=== PATIENT | male | born 1940 | race Caucasian/White ===

== ENCOUNTER 2016-05-23 16:53 | Inpatient (IN) | payer OTHER, MEDICARE ==
[~2016-05-23] VITALS: Ht 177.8 cm; Wt 102.3 kg
[~2016-05-23 16:53] MED LIST: ASPIR-LOW81 MG PO; ASPIRIN E.C.81 M1 PO; Aspirin E.C. PO; BUSPIRONE HCL15 MG PO; Buspar PO; CARDIZEM CD240 MG PO; CELEXA40 MG PO; CLONAZEPAM0.5 MG PO; COLACE100 MG PO; Cardizem CD,Cartia X PO; Colace PO; DAILY VALUE1 EACH PO; FUROSEMIDE20 MG PO; FUROSEMIDE40 MG PO; GABAPENTIN600 MG PO; GLIPIZIDE XL5 MG PO; GLIPIZIDE10 M1 PO; GLUCOPHAGE1000 MG PO; GLUCOPHAGE500 MG PO; Glucotrol PO; HYDROCHLOROTHIA25 MG PO; Invanz IV; K-DUR10 MEQ PO; KlonoPIN PO; LEVEMIR FL100 UNIT/1 SC; LEVEMIR FL100 UNITS/ PO; LEVEMIR FL100 UNITS/ SC; LEXAPRO10 MG PO; LIPITOR20 MG PO; LOTENSIN20 M1 GT; LOTENSIN20 M1 PO; LOTENSIN20 MG PO; Lotensin PO; METHADONE10 MG PO; METHADONE5 MG PO; METHadone HCl PO; MULTIVITAMINS1 EAC2 PO; PLAVIX75 MG PO; PROPRANOLOL HCL20 MG PO; Plavix PO; SANTYL30 GM TP; SIMVASTATIN80 MG PO; SPIRONOLACTONE25 MG PO; TYLENOL PM1 CAPLET PO; Theragran PO; Vancomycin IV; Zocor PO; celeXA PO
[2016-05-23 17:48] LABS: HEMATOCRIT 29.4 % (38.0-50.0); MCH 28.1 PG (29.0-34.0); MCHC 33.3 G/DL (30.0-36.0); MCV 84.2 FL (86-99); PLATELET COUNT 294 K/uL (156-360); RBC DIS.WIDTH-CV 13.4 % (11.8-14.6); RBC DIS.WIDTH-SD 39.6 % (39-53); RED BLOOD COUNT 3.49 M/uL (4.00-5.50); WHITE BLOOD COUNT 7.4 K/uL (4.1-10.2)
[2016-05-23 18:07] LABS: CHLORIDE 100 mEq/L (99-109); POTASSIUM 4.3 mEq/L (3.7-5.4)
[2016-05-23 18:08] LABS: SODIUM 142 mEq/L (136-147)
[2016-05-23 18:09] LABS: GLUCOSE 102 mg/dL (70-99)
[2016-05-23 18:11] LABS: ANION GAP 13 MEQ/L (2-14)
[2016-05-23 18:13] LABS: GFR ESTIMATE (CALCULATED) 40 mL/min/
[2016-05-23 18:14] LABS: UREA NITROGEN (BUN) 36 mg/dL (9-23)
[2016-05-23 18:30] LABS: ADD MIUA? YES; BILIRUBIN NEGATIVE; BLOOD SMALL; COLOR STRAW ((YELLOW)); GLUCOSE (STRIP) NEGATIVE; KETONES NEGATIVE; LEUKOCYTES NEGATIVE; NITRITE NEGATIVE; PROTEIN (STRIP) NEGATIVE; UROBILINOGEN 0.2 MG/DL (0.2-1.0)
[2016-05-23 18:35] LABS: BACTERIA NONE SEEN /HPF; EPITHELIAL CELLS NONE SEEN /HPF; MUCUS TRACE /LPF; RED BLOOD CELLS 0-5 /HPF (0-5); UCUL ADDED? NO; WHITE BLOOD CELLS 0-5 /HPF (0-5)
[2016-05-23 19:22] LABS: INFLUENZA A VIRAL ANTIGEN NEGATIVE; INFLUENZA B VIRAL ANTIGEN NEGATIVE
[2016-05-23] MEDS ORDERED: CARDIZEM CD120 M1 PO (20:00)
[2016-05-23] MEDS ORDERED: GABAPENTIN300 MG PO (20:02)
[2016-05-23] MEDS ORDERED: LEXAPRO5 MG PO (20:03)
[2016-05-23] MEDS ORDERED: VITAMIN D31000 UNI2 PO (20:07)
[2016-05-23] MEDS ORDERED: QUETIAPINE FUMA25 MG PO ×2 (20:08)
[2016-05-23] MEDS ORDERED: ZOLOFT100 MG PO ×2 (20:09→20:10)
[2016-05-23] MEDS ORDERED: CARBIDOPA/LEVO1 EACH PO (20:10)
[2016-05-23] MEDS ORDERED: TRAZODONE HCL50 MG PO (20:11)
[2016-05-23] MEDS ORDERED: IRON325 MG PO (20:11)
[2016-05-23 21:02] LABS: POINT-OF-CARE METER ID UU14100415
[2016-05-23 22:22] VITALS: BP 127/60
[2016-05-23 22:24] VITALS: BP 127/60
[2016-05-24 03:07] VITALS: BP 155/70
[2016-05-24 07:15] LABS: EOSINOPHIL (%) 0.2 % (0-5); HEMATOCRIT 27.1 % (38.0-50.0); MCH 27.3 PG (29.0-34.0); MCHC 32.5 G/DL (30.0-36.0); MCV 84.2 FL (86-99); MONOCYTE (%) 8.7 % (3-12); MONOCYTE COUNT 0.5 K/uL (0-0.8); NEUTROPHIL (%) 71.3 % (45-76); NEUTROPHIL COUNT 3.7 K/uL (1.8-6.4); RBC DIS.WIDTH-CV 13.9 % (11.8-14.6); RBC DIS.WIDTH-SD 42.4 % (39-53); RED BLOOD COUNT 3.22 M/uL (4.00-5.50); WHITE BLOOD COUNT 5.2 K/uL (4.1-10.2)
[2016-05-24 08:29] VITALS: BP 141/68
[2016-05-24 08:43] LABS: MEAN PLAT.VOLUME 8.9 uM^3 (9.0-12.4); PLATELET COUNT UNABLE TO REPORT K/uL (156-360); USER ID TLW
[2016-05-24 09:32] LABS: ANION GAP 13 MEQ/L (2-14); CHLORIDE 101 MEQ/L (99-109); GLUCOSE 79 mg/dL (70-99); SAMPLE HEMOLYSIS CHECK 0; SAMPLE ICTERIC CHECK 0; SAMPLE LIPEMIA CHECK 0; SODIUM 142 MEQ/L (136-147); UREA NITROGEN (BUN) 26 mg/dL (9-23)
[2016-05-24 09:35] LABS: GFR ESTIMATE (CALCULATED) > 59 mL/min/; POTASSIUM 3.4 MEQ/L (3.7-5.4)
[2016-05-24 11:07] VITALS: BP 146/86
[2016-05-24 15:27] LABS: ERTH.SED.RATE 50 MM/HR (0-20)
[2016-05-24 15:50] VITALS: BP 124/58
[2016-05-24 19:37] VITALS: BP 152/67
[2016-05-25 02:40] VITALS: BP 148/67
[2016-05-25 06:50] LABS: HEMATOCRIT 24.8 % (38.0-50.0); MCH 27.4 PG (29.0-34.0); MCHC 32.7 G/DL (30.0-36.0); MCV 83.8 FL (86-99); RBC DIS.WIDTH-CV 13.9 % (11.8-14.6); RBC DIS.WIDTH-SD 42.2 % (39-53); RED BLOOD COUNT 2.96 M/uL (4.00-5.50)
[2016-05-25 06:51] LABS: WHITE BLOOD COUNT 3.6 K/uL (4.1-10.2)
[2016-05-25 06:56] LABS: ALKALINE PHOSPHATASE 64 IU/L (3-129); ANION GAP 9 MEQ/L (2-14); CHLORIDE 101 MEQ/L (99-109); GFR ESTIMATE (CALCULATED) > 59 mL/min/; IRON 19 MCG/DL (35-150); POTASSIUM 3.1 MEQ/L (3.7-5.4); SAMPLE HEMOLYSIS CHECK 0; SAMPLE ICTERIC CHECK 0; SAMPLE LIPEMIA CHECK 0; SODIUM 138 MEQ/L (136-147); TOTAL BILIRUBIN 0.4 MG/DL (0.0-1.0); UREA NITROGEN (BUN) 18 mg/dL (9-23)
[2016-05-25 06:57] LABS: GLUCOSE 135 mg/dL (70-99)
[2016-05-25 07:33] LABS: PLATELET COUNT 197 K/uL (156-360)
[2016-05-25 08:18] VITALS: BP 121/58
[2016-05-25 12:00] VITALS: BP 110/62
[2016-05-25 15:49] VITALS: BP 131/63
[2016-05-25 16:25] LABS: POINT-OF-CARE METER ID UU13113725
[2016-05-25 18:38] LABS: POINT-OF-CARE METER ID UU13113725
[2016-05-25 19:30] VITALS: BP 129/62
[2016-05-25 21:00] LABS: POINT-OF-CARE METER ID UU13113725
[2016-05-25 23:09] VITALS: BP 149/76
[2016-05-26 02:13] LABS: POINT-OF-CARE METER ID UU13113725
[2016-05-26 05:30] LABS: POINT-OF-CARE METER ID UU13113725
[2016-05-26 05:50] LABS: POINT-OF-CARE METER ID UU13113725
[2016-05-26 06:09] LABS: MCHC 33.2 G/DL (30.0-36.0); MCV 84.5 FL (86-99); MEAN PLAT.VOLUME 9.3 uM^3 (9.0-12.4); PLATELET COUNT 202 K/uL (156-360); RBC DIS.WIDTH-CV 13.8 % (11.8-14.6); RBC DIS.WIDTH-SD 41.9 % (39-53); RED BLOOD COUNT 2.96 M/uL (4.00-5.50); WHITE BLOOD COUNT 4.1 K/uL (4.1-10.2)
[2016-05-26 06:49] LABS: ALKALINE PHOSPHATASE 62 IU/L (3-129); ANION GAP 8 MEQ/L (2-14); CHLORIDE 100 MEQ/L (99-109); GFR ESTIMATE (CALCULATED) > 59 mL/min/; GLUCOSE 112 mg/dL (70-99); POTASSIUM 3.3 MEQ/L (3.7-5.4); SAMPLE HEMOLYSIS CHECK 0; SAMPLE ICTERIC CHECK 0; SAMPLE LIPEMIA CHECK 0; SODIUM 139 MEQ/L (136-147); TOTAL BILIRUBIN 0.4 MG/DL (0.0-1.0); UREA NITROGEN (BUN) 16 mg/dL (9-23)
[2016-05-26 07:11] VITALS: BP 120/58
[2016-05-26 09:07] LABS: POINT-OF-CARE METER ID UU13113725
[2016-05-26 11:56] LABS: POINT-OF-CARE METER ID UU13113725
[2016-05-26 15:22] VITALS: BP 115/63
[2016-05-26 16:19] LABS: POINT-OF-CARE METER ID UU13113725
[2016-05-26 22:38] VITALS: BP 123/61
[2016-05-26] MEDS ORDERED: DICLOXACILLIN500 MG PO (23:45)
[2016-05-27 05:50] LABS: POINT-OF-CARE METER ID UU13113725
[2016-05-27 06:48] LABS: HEMATOCRIT 26.7 % (38.0-50.0); MCH 27.5 PG (29.0-34.0); MCV 83.4 FL (86-99); PLATELET COUNT 227 K/uL (156-360); RBC DIS.WIDTH-CV 13.6 % (11.8-14.6); RBC DIS.WIDTH-SD 41.4 % (39-53); WHITE BLOOD COUNT 4.9 K/uL (4.1-10.2)
[2016-05-27 07:07] VITALS: BP 127/58
[2016-05-27 08:05] LABS: ALKALINE PHOSPHATASE 71 IU/L (3-129); ANION GAP 10 MEQ/L (2-14); CHLORIDE 96 MEQ/L (99-109); GFR ESTIMATE (CALCULATED) > 59 mL/min/; GLUCOSE 97 mg/dL (70-99); POTASSIUM 3.4 MEQ/L (3.7-5.4); SAMPLE HEMOLYSIS CHECK 1; SAMPLE ICTERIC CHECK 0; SAMPLE LIPEMIA CHECK 0; SODIUM 137 MEQ/L (136-147); TOTAL BILIRUBIN 0.5 MG/DL (0.0-1.0); UREA NITROGEN (BUN) 15 mg/dL (9-23)
== END 2016-05-27 09:02 | disposition home or self-care (01) | DRG 871 ==
LOC: EME 16:53 → 5EAST 20:27 → EDOF 20:27 → 5EAST 21:59
PROVIDERS: Emergency Medicine; Internal Medicine; Physician Assistant
DX: A41.9 Sepsis, unspecified organism (principal); G93.40 Encephalopathy, unspecified; E11.628 Type 2 diabetes mellitus with other skin complications; L03.115 Cellulitis of right lower limb; N17.9 Acute kidney failure, unspecified; I10 Essential (primary) hypertension; E78.5 Hyperlipidemia, unspecified; I25.10 Atherosclerotic heart disease of native coronary artery without angina pectoris; R54 Age-related physical debility; G47.33 Obstructive sleep apnea (adult) (pediatric); G89.29 Other chronic pain; F32.9 Major depressive disorder, single episode, unspecified; I25.2 Old myocardial infarction; D50.9 Iron deficiency anemia, unspecified; E11.610 Type 2 diabetes mellitus with diabetic neuropathic arthropathy; Z98.890 Other specified postprocedural states; Z79.4 Long term (current) use of insulin; Z95.5 Presence of coronary angioplasty implant and graft; Z91.19 Patient's noncompliance with other medical treatment and regimen; Z87.891 Personal history of nicotine dependence
CPT/HCPCS: 70450; 71010; 73610; 78315; 78999; 80048; 80053; 80202; 81003; 82948; 83540; 83605; 84466; 85025; 85027; 85651; 86140; 87040; 87502; 93005; 99281; 99285; A9503; J1644; J1815; J2060; J2543; J3370; J7030; J7050